=== PATIENT | male | born 1990 | race Caucasian/White ===

== ENCOUNTER 2021-12-18 17:59 | Emergency (ER) | payer OTHER ==
[2021-12-18 18:10] VITALS: O2SAT 97
--- NOTE | 2021-12-18 18:56 | ERPHSYRPT ---
- History of Present Illness Time Seen by Provider: 12/18/21 18:15 Patient Subjective Stated Complaint: Pt states "My lip swelled up a couple of days ago and I took benadryl and I am on prednisone for my crohn's and the swelling went away but now I have this white film on my lip and tongue." Triage Nursing Assessment: pt presented alert and oriented X 3, skin pwd Pt ambulates with an upright steady gait, able to speak in clear full sentences pt in no apaprent respiratory distress. pt has white film on inside lower lip and tongue. Physician History: Patient 31-year-old male presents to our ED for evaluation of "white film on tongue and lip". Symptoms started approximately 3 days ago. Patient has history of Crohn's disease currently on prednisone. The area of involvement is painful however pain is controlled with [id number] analgesics. Patient normally gets his care at the [facility]. No difficulty swallowing. No chest pain or shortness of breath. No nausea vomiting or diaphoresis. Symptoms are mild to moderate in intensity. No specific worsening or improving factors. Patient states is otherwise healthy. Patient advises that he has been checked for HIV in the past. Patient states he has had high risk behaviors in the past 6 months. The findings appear to be oral thrush. Patient voices no other complaints or concerns at this time. Timing/Duration: day(s) (3 days) Severity: moderate Modifying Factors: Improves With: nothing Associated Symptoms: denies symptoms Allergies/Adverse Reactions: No Known Drug Allergies Allergy (Verified 12/18/21 18:10) Home Medications: Prednisone 20 mg [Deltasone 20 mg] 20 mg PO DAILY 12/18/21 [History] Hx Tetanus, Diphtheria Vaccination/Date Given: Yes Hx Influenza Vaccination/Date Given: No Hx Pneumococcal Vaccination/Date Given: No Immunizations Up to Date: Yes Travel Risk - International Travel Have you traveled outside of the country in past 3 weeks: No - Coronavirus Screening Are you exhibiting any of the following symptoms?: No Close contact with a COVID-19 positive Pt in past 14-21 Days: No - Vaccine Status Have you recieved a Covid-19 vaccination: Yes 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: [employer] - Review of Systems Constitutional: No Symptoms, No Fever, No Chills Eyes: No Symptoms Ears, Nose, & Throat: No Symptoms Respiratory: No Symptoms, No Cough, No Dyspnea Cardiac: No Symptoms, No Chest Pain, No Edema, No Syncope Abdominal/Gastrointestinal: No Symptoms, No Abdominal Pain, No Nausea, No Vomiting, No Diarrhea Genitourinary Symptoms: No Symptoms, No Dysuria Musculoskeletal: No Symptoms, No Back Pain, No Neck Pain Skin: No Symptoms, No Rash Neurological: No Symptoms, No Dizziness, No Focal Weakness, No Sensory Changes Psychological: No Symptoms Endocrine: No Symptoms Hematologic/Lymphatic: No Symptoms Immunological/Allergic: No Symptoms All Other Systems: Reviewed and Negative - Past Medical History Pertinent Past Medical History: Yes GI Medical History: Crohns Disease Psycho-Social History: Anxiety - Past Surgical History Past Surgical History: Yes Other Surgical History: left arm - Social History Smoking Status: Current every day smoker How long have you smoked: years Exposure to second hand smoke: Yes Drug Use: none Patient Lives Alone: No - Nursing Vital Signs Nursing Vital Signs: Initial Vital Signs Temperature 97.4 F 12/18/21 18:04 Pulse Rate 119 H 12/18/21 18:04 Respiratory Rate 22 12/18/21 18:04 Blood Pressure 139/100 12/18/21 18:04 O2 Sat by Pulse Oximetry 97 12/18/21 18:04 Pain Scale Pain Intensity 3 - Physical Exam General Appearance: no apparent distress, alert Eye Exam: PERRL/EOMI, eyes nml inspection Ears, Nose, Throat Exam: normal ENT inspection, TMs normal, pharynx normal, moist mucous membranes Neck Exam: normal inspection, non-tender, supple, full range of motion Respiratory Exam: normal breath sounds, lungs clear, airway intact, No respiratory distress Cardiovascular Exam: regular rate/rhythm, normal heart sounds, normal peripheral pulses Gastrointestinal/Abdomen Exam: soft, normal bowel sounds, No tenderness, No mass Back Exam: normal inspection, normal range of motion, No CVA tenderness, No vertebral tenderness Extremity Exam: normal inspection, normal range of motion, pelvis stable Neurologic Exam: alert, oriented x 3, cooperative, normal mood/affect, nml cerebellar function, nml station & gait, sensation nml, No motor deficits Skin Exam: normal color, warm, dry, No rash Lymphatic Exam: No adenopathy SpO2 Interpretation: normal SpO2: 97 O2 Delivery: Room Air - Course Nursing assessment & vital signs reviewed: Yes - Progress Progress: improved Progress Note: We wrote a prescription for clotrimazole troches. 10 mg dissolved in the mouth 4 times daily for 1 week. [facility]. Patient will require further evaluation to determine whether the prednisone is causing the oral thrush. No indication for further work-up at this time. Will discharge home. Patient agrees to follow-up with primary care doctor within 48 hours for evaluation. Portions of this note were created with voice recognition technology. There may be grammatical, spelling, punctuation or sound alike errors 12/18/21 18:59 Counseled pt/family regarding: lab results, diagnosis - Departure Departure Disposition: Home Clinical Impression: Oral thrush Condition: Stable Critical Care Time: No Referrals: JAIME KILGORE MD [ACTIVE STAFF] - Follow up/PCP as directed Additional Instructions: Discharge/Care Plan MADISON WALLACE was seen on 12/18/21 in the Emergency Room. The patient was counseled regarding Diagnosis,Lab results, Imaging studies, need for follow up and when to return to the Emergency Room. Prescriptions given: Discharge Note I have spoken with the patient and/or caregivers. I have explained the patient's condition, diagnosis and treatment plan based on the information available to me at this time. I have answered the patient's and/or caregiver's questions and addressed any concerns. The patient and/or caregivers have as good understanding of the patient's diagnosis, condition and treatment plan as can be expected at this point. The vital signs have been stable. The patient's condition is stable and appropriate for discharge from the emergency department. The patient will pursue further outpatient evaluation with the primary care physician or other designated or consulting physician as outlined in the discharge instructions. The patient and/or caregivers are agreeable to this plan of care and follow-up instructions have been explained in detail. The patient and/or caregivers have received these instruction. The patient/and or caregivers are aware that any significant change in condition or worsening of symptoms should prompt an immediate return to this or the closest emergency department or call 911.
[2021-12-18 19:01] VITALS: BP 144/98; PULSE 105
== END 2021-12-18 19:06 | disposition home or self-care (01) ==
LOC: ED 17:59
DX: B37.0 Candidal stomatitis (principal); Z72.0 Tobacco use; Z79.52 Long term (current) use of systemic steroids
CPT/HCPCS: 99283

== ENCOUNTER 2022-02-06 19:11 | Emergency (ER) | payer OTHER ==
--- NOTE | 2022-02-06 19:36 | ERPHSYRPT ---
- History of Present Illness Time Seen by Provider: 02/06/22 19:36 Historian: patient Exam Limitations: no limitations Physician History: This is a 31-year-old white male who has multiple body complaints. He presents with anxiety issues about his health. He also stated that he needed a note for work because he missed work today because he was not feeling well. He complains of chest pain, abdominal bloating, sweating of his hands and palms, shaking, and sore throat. Patient states that the symptoms have been intermittent over the last 2 to 3 weeks. Approximately 2 weeks ago he went to the [facility] to undergo a lower endoscopy to be evaluated for Crohn's. There was a single small polyp that was removed but no evidence of Crohn's per his report. Yesterday, the patient had an upper endoscopy and there was evidence of some inflammation of the esophagus and stomach per his report. He has not been given the final report and was not placed on any medication. Patient had a negative COVID test yesterday. Patient is currently on no medications at all. Timing/Duration: week(s), intermittent Quality: pressure Abdominal Pain Onset Location: generalized abdomen Severity of Pain-Max: mild Severity of Pain-Current: mild Modifying Factors: Improves With: nothing Associated Symptoms: vomiting (Yesterday twice after his endoscopy but none today) Previous symptoms: same symptoms as today Allergies/Adverse Reactions: No Known Drug Allergies Allergy (Verified 02/06/22 19:49) Home Medications: No Reportable Medications [No Reported Medications] 02/06/22 [History] Hx Tetanus, Diphtheria Vaccination/Date Given: Yes Hx Influenza Vaccination/Date Given: No Hx Pneumococcal Vaccination/Date Given: No Travel Risk - International Travel Have you traveled outside of the country in past 3 weeks: No - Coronavirus Screening Are you exhibiting any of the following symptoms?: No Close contact with a COVID-19 positive Pt in past 14-21 Days: No - Vaccine Status Have you recieved a Covid-19 vaccination: Yes [employer]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[employer] - Review of Systems Constitutional: No Symptoms Eyes: No Symptoms Ears, Nose, & Throat: Throat Pain Respiratory: No Symptoms Cardiac: No Symptoms Abdominal/Gastrointestinal: Abdominal Pain (Described as bloating), Vomiting (None today but twice yesterday after an upper endoscopy) Genitourinary Symptoms: No Symptoms Musculoskeletal: No Symptoms Skin: No Symptoms Neurological: No Symptoms Psychological: Anxiety Endocrine: No Symptoms Hematologic/Lymphatic: No Symptoms Immunological/Allergic: No Symptoms All Other Systems: Reviewed and Negative - Past Medical History Pertinent Past Medical History: Yes GI Medical History: Crohns Disease Psycho-Social History: Anxiety - Past Surgical History Past Surgical History: Yes Other Surgical History: left arm - Social History Smoking Status: Current every day smoker How long have you smoked: years Exposure to second hand smoke: Yes Drug Use: none Patient Lives Alone: No - Nursing Vital Signs Nursing Vital Signs: Initial Vital Signs Temperature 98.8 F 02/06/22 19:38 Pulse Rate 106 H 02/06/22 19:38 Respiratory Rate 20 02/06/22 19:38 Blood Pressure 133/95 02/06/22 19:38 O2 Sat by Pulse Oximetry 97 02/06/22 19:38 Pain Scale Pain Intensity 0 - Physical Exam General Appearance: no apparent distress Eye Exam: PERRL/EOMI, eyes nml inspection Ears, Nose, Throat Exam: normal ENT inspection, moist mucous membranes Neck Exam: normal inspection, non-tender, supple, full range of motion Respiratory Exam: normal breath sounds, lungs clear, airway intact, No chest tenderness, No respiratory distress Cardiovascular Exam: regular rate/rhythm, normal heart sounds, normal peripheral pulses Rectal Exam: not done Back Exam: normal inspection, normal range of motion, No CVA tenderness Extremity Exam: normal inspection, normal range of motion, pelvis stable Neurologic Exam: alert, oriented x 3, cooperative, reading professor II-XII nml as tested, normal mood/affect, nml cerebellar function, nml station & gait, sensation nml Skin Exam: normal color, warm, dry Lymphatic Exam: No adenopathy SpO2 Interpretation: normal O2 Delivery: Room Air - Course Nursing assessment & vital signs reviewed: Yes EKG Interpreted by Me: RATE (76), Sinus Rhythm, Right Mobile Deviation, NORMAL INTERVALS, NORMAL QRS, NORMAL ST-T, Other (Acute ischemic changes.) Ordered Tests: Active Orders 24 hr Category Date Time Status EKG-ER Only STAT Care 02/06/22 20:49 Active AMYLASE Stat Lab 02/06/22 21:02 Completed CBC W DIFF Stat Lab 02/06/22 21:02 Completed CMP Stat Lab 02/06/22 21:02 Completed LIPASE Stat Lab 02/06/22 21:02 Completed TROPONIN Q4H Lab 02/06/22 21:02 Completed TROPONIN Q4H Lab 02/07/22 01:00 Ordered TROPONIN Q4H Lab 02/07/22 05:00 Ordered Lab/Rad Data: Laboratory Result Diagrams 02/06/22 21:02 02/06/22 21:02 Laboratory Results 02/06/22 02/06/22 02/06/22 Range/Units 21:02 21:02 21:02 WBC 6.6 (4.0-10.5) x10^3/uL RBC 5.28 (4.1-5.6) x10^6/uL Hgb 16.9 (12.5-18.0) g/dL Hct 52.1 H (42-50) % MCV 98.7 (78-100) fL MCH 32.0 (26-32) pg MCHC 32.4 (32-36) g/dL RDW 13.1 (11.5-14.0) % Plt Count 241 (150-450) x10^3/uL MPV 9.0 (7.5-11.0) fL Gran % 67.7 H (36.0-66.0) % Immature Gran % (Auto) 0.2 (0.00-0.4) % Nucleat RBC Rel Count 0.0 (0.00-0.1) % Eos # (Auto) 0.07 (0-0.5) x10^3/uL Immature Gran # (Auto) 0.01 (0.00-0.03) x10^3u/L Absolute Lymphs (auto) 1.12 (1.0-4.6) x10^3/uL Absolute Monos (auto) 0.84 (0.0-1.3) x10^3/uL Absolute Nucleated RBC 0.00 (0.00-0.01) x10^3u/L Lymphocytes % 16.9 L (24.0-44.0) % Monocytes % 12.7 H (0.0-12.0) % Eosinophils % 1.1 (0.00-5.0) % Basophils % 1.4 (0.0-0.4) % Absolute Granulocytes 4.50 (1.4-6.9) x10^3/uL Basophils # 0.09 (0-0.4) x10^3/uL Sodium 139 (137-145) mmol/L Potassium 3.5 (3.5-5.1) mmol/L Chloride 106 (98-107) mmol/L Carbon Dioxide 28 (22-30) mmol/L Anion Gap 9.2 (5-15) MEQ/L BUN 9 (9-20) mg/dL Creatinine 0.74 (0.66-1.25) mg/dL Estimated GFR > 60.0 ML/MIN Glucose 101 (74-106) mg/dL Calcium 9.4 (8.4-10.2) mg/dL Total Bilirubin 0.70 (0.2-1.3) mg/dL AST 21 (17-59) U/L ALT 13 (0-50) U/L Alkaline Phosphatase 87 (38-126) U/L Troponin I < 0.012 (0.000-0.034) ng/mL Serum Total Protein 6.9 (6.3-8.2) g/dL Albumin 4.1 (3.5-5.0) g/dL Amylase 70 (30-110) U/L Lipase 115 (23-300) U/L - Departure Departure Disposition: Home Clinical Impression: Encounter for medical screening examination Condition: Stable Critical Care Time: No Referrals: ELIZABETH SANDOVAL FNP [Primary Care Provider] - Follow up/PCP as directed Additional Instructions: Follow-up with your primary care physician for further evaluation and management. Forms: Work/School Release Form
[2022-02-06 21:05] LABS: Basophil (Absolute #) 0.09 x10^3/uL (0-0.4); Eosinophil % 1.1 % (0.00-5.0); Eosinophil (Absolute #) 0.07 x10^3/uL (0-0.5); Hematocrit 52.1 % (42-50); Hemoglobin 16.9 g/dL (12.5-18.0); Lymphocyte (Absolute #) 1.12 x10^3/uL (1.0-4.6); Lymphocytes % 16.9 % (24.0-44.0); Mean Cell Volume 98.7 fL (78-100); Mean Corpuscular Hgb Concent. 32.4 g/dL (32-36); Monocyte (Absolute #) 0.84 x10^3/uL (0.0-1.3); Monocytes % 12.7 % (0.0-12.0); Neutrophil % 67.7 % (36.0-66.0); Platelet Count 241 x10^3/uL (150-450); Red Blood Count 5.28 x10^6/uL (4.1-5.6); Red Cell Distribution Width 13.1 % (11.5-14.0); White Blood Count 6.6 x10^3/uL (4.0-10.5)
[2022-02-06 21:17] LABS: ALBUMIN 4.1 g/dL (3.5-5.0); ALKALINE PHOSPHATASE 87 U/L (38-126); AMYLASE 70 U/L (30-110); ANION GAP 9.2 MEQ/L (5-15); BLOOD UREA NITROGEN 9 mg/dL (9-20); CHLORIDE 106 mmol/L (98-107); Calcium 9.4 mg/dL (8.4-10.2); Carbon Dioxide 28 mmol/L (22-30); Creatinine 1 0.74 mg/dL (0.66-1.25); EST GLOMERULAR FILTRATION RATE > 60.0 ML/MIN; Glucose 101 mg/dL (74-106); LIPASE 115 U/L (23-300); Potassium 3.5 mmol/L (3.5-5.1); SGOT/AST 21 U/L (17-59); SGPT/ALT 13 U/L (0-50); SODIUM 139 mmol/L (137-145); Total Protein 6.9 g/dL (6.3-8.2)
[2022-02-06 22:12] VITALS: BP 112/86; PULSE 77; O2SAT 98
== END 2022-02-06 22:12 | disposition home or self-care (01) ==
LOC: ED 19:11
DX: Z71.1 Person with feared health complaint in whom no diagnosis is made (principal); R07.9 Chest pain, unspecified; R14.0 Abdominal distension (gaseous); J02.9 Acute pharyngitis, unspecified; R10.84 Generalized abdominal pain; Z72.0 Tobacco use
CPT/HCPCS: 36415; 80053; 82150; 83690; 84484; 85025; 93005; 99283